=== PATIENT | male | born 1985 | race Caucasian/White ===

== ENCOUNTER 2017-06-30 09:23 | Emergency (ER) | payer MEDICAID ==
[~2017-06-30] VITALS: Ht 180.3 cm; Wt 83.5 kg
[2017-06-30 09:26] VITALS: BP 126/78
== END 2017-06-30 11:04 | disposition home or self-care (01) ==
LOC: ED 10:50
DX: L01.01 Non-bullous impetigo (principal)
CPT/HCPCS: 99283

== ENCOUNTER 2018-06-03 00:46 | Emergency (ER) | payer MEDICAID ==
[~2018-06-03] VITALS: Ht 182.9 cm; Wt 81.8 kg
[2018-06-03 04:55] VITALS: BP 107/61
== END 2018-06-03 04:58 | disposition home or self-care (01) ==
LOC: ED 04:32
DX: S06.0X9A Concussion with loss of consciousness of unspecified duration, initial encounter (principal); S01.01XA Laceration without foreign body of scalp, initial encounter; F10.129 Alcohol abuse with intoxication, unspecified; F15.129 Other stimulant abuse with intoxication, unspecified; Z72.89 Other problems related to lifestyle; Z91.14 Patient's other noncompliance with medication regimen; Z60.9 Problem related to social environment, unspecified; Y04.0XXA Assault by unarmed brawl or fight, initial encounter; Y93.89 Activity, other specified; Y92.488 Other paved roadways as the place of occurrence of the external cause; Y99.8 Other external cause status
CPT/HCPCS: 12032; 70450; 72125; 99284